=== PATIENT | female | born 1975 | race Caucasian/White ===

== ENCOUNTER 2025-02-06 14:58 | Emergency (ER) | payer SELFPAY ==
[2025-02-06 15:02] VITALS: BP 132/77; PULSE 70; RESP 18; TEMP 36.8; O2SAT 96; BMI 34.6
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
== END 2025-02-06 16:48 | disposition left against medical advice (07) ==
LOC: ED 16:43
PROVIDERS: Emergency Provider Emergency Medicine; Referring Provider Emergency Medicine; Visit Provider Emergency Medicine
DX: I10 Essential (primary) hypertension (principal); F17.290 Nicotine dependence, other tobacco product, uncomplicated; E05.00 Thyrotoxicosis with diffuse goiter without thyrotoxic crisis or storm; V89.2XXA Person injured in unspecified motor-vehicle accident, traffic, initial encounter
CPT/HCPCS: 99284